=== PATIENT | female | born 1955 | race Caucasian/White ===

== ENCOUNTER → 2017-04-20 | Outpatient (CLI) | payer BC ==
[~2017-04-20] VITALS: Ht 162.6 cm; Wt 120.7 kg
[~2017-04-20] MED LIST: ASPIR 8181 MG PO; DEPAKOTE 250MG250 M1 PO; DOXYCYCLINE 10100 MG PO; LEVOTHYROXIN0.125 M1 PO; METFORMIN HCL500 MG PO; MULTIVITAMINS1 EAC7 PO; PRAVACHOL20 MG PO; PRINIVIL20 M1 PO
--- NOTE | ~2017-04-20 | S ---
[facility] [address] [place] [address] SURGICAL PATH RPT PROCEDURE Name: CARMELINA IGNACIO Room #: REG [facility]#: [id number] Admission: 04/20/17 Date of : 53 Discharge: Report #: [id number] Path Case #: [id number] PATHOLOGY REPORT DRAFT COLLECTION DATE: 04/20/2017 RECEIVED DATE: 04/20/2017 SPECIMEN(S) RECEIVED: A.Proximal ascending colon polyp B.Hepatic flexure polyp C.Polyp at 30 cm
--- NOTE | ~2017-04-20 | P ---
[facility] [place] [address] PROCEDURE REPORT Name: CARMELINA IGNACIO Room #: REG [facility]#: [id number] Admission: 04/20/17 Attend Phys: Rj Samuels MD Discharge: Date of : 53 Report #: [id number] THIS REPORT FOR: //name// CC: Rj Garrett MD BRIEF HISTORY: The patient is a 61-year-old woman who had a recent episode of bloody mucus per rectum. Her last colonoscopy was 10 years ago. PREOPERATIVE DIAGNOSIS: Rectal bleeding. POSTOPERATIVE DIAGNOSES: 1. Diminutive polyp, proximal ascending colon. 2. Diminutive polyp, hepatic flexure. 3. Flat 6-mm polyp, 30 cm. 4. Moderate sigmoid diverticulosis coli. 5. Small internal hemorrhoids. MEDICATIONS: Deep sedation with propofol per anesthesia. SPECIMENS: 1. Polyp, proximal ascending colon. 2. Polyp, hepatic flexure. 3. Polyp at 30 cm. ESTIMATED BLOOD LOSS: 3 mL. PROCEDURE: Colonoscopy to cecum and terminal ileum with snare polypectomy and biopsy. FINDINGS: Prior to propofol sedation, procedure of colonoscopy discussed with the patient as well as potential risks, benefits, and complications. She indicates she understands and desires to proceed. With the patient in left lateral decubitus position, digital examination was completed, which revealed no abnormalities. Subsequently, the [employer] video colonoscope was introduced into the rectum, advanced under direct vision to the cecum. Done with minimal difficulty. The cecum was identified by the ileocecal valve and the appendiceal orifice. I was able to visualize the distal segment of terminal ileum, which was inspected and noted to be unremarkable. At that point, the scope was slowly withdrawn and careful circumferential views were obtained including retroflexing the scope in the ascending colon. Upon slow withdrawal of the scope, the prep was noted to be excellent. Mucosa was within normal limits, normal vascular pattern, and normal light reflex. As we withdrew the scope, diminutive polyps were identified in the proximal ascending colon, which were removed by biopsy and another one was identified at the [address] [address] PROCEDURE REPORT Name: CARMELINA IGNACIO Room #: REG [facility] Nina#: [id number] Admission: 04/20/17 Attend Phys: Rj Samuels MD Discharge: Date of : 53 Report #: [id number] flexure and also removed by biopsy. An occasional diverticulum was seen in the proximal colon. As we withdrew the scope, no additional abnormalities were seen until the left colon was reached, in particular the sigmoid colon, there was noted to be moderately severe diverticular disease without endoscopic evidence of diverticulitis. The scope was withdrawn, a flat polyp was seen and removed by cold snare polypectomy at 30 cm, few fragments remain were cleaned up with biopsy forceps. Scope was further withdrawn and no additional polypoid lesions were seen. Scope was withdrawn in the rectum. Upon retroflexion, small internal hemorrhoids were seen. Scope was withdrawn. The patient tolerated the procedure well. CONDITION OF THE PATIENT UPON DISCHARGE: Following procedure, the patient drowsy, aroused, conversant and will be discharged home when fully ambulatory. INSTRUCTIONS TO THE PATIENT AND FAMILY AT THE TIME OF DISCHARGE: The patient had recent rectal bleeding, blood likely came from hemorrhoids. She has 3 polyps as noted. Doubt that these were the source of bleeding. We will follow up on the pathology of the polyps. If all 3 are adenomas, she should return in 3 years; if one or two adenomas, 5 years will be indicated; if none of them or precancerous, then 10 years would be indicated. Last colonoscopy was 10 years ago. Withdrawal time from the cecum was 18 minutes. She will return to care of Dr. Geraldo Garrett, return to see me as needed. <ELECTRONICALLY SIGNED> By: Rj Samuels MD 04/21/17 [id number] [id number] Rj Samuels MD /nt
== END | disposition home or self-care (01) ==
LOC: GI 06:28
DX: K63.5 Polyp of colon (principal); K57.30 Diverticulosis of large intestine without perforation or abscess without bleeding; K64.8 Other hemorrhoids; I10 Essential (primary) hypertension; E11.9 Type 2 diabetes mellitus without complications; E78.00 Pure hypercholesterolemia, unspecified; E03.9 Hypothyroidism, unspecified; K21.9 Gastro-esophageal reflux disease without esophagitis; Z87.891 Personal history of nicotine dependence
CPT/HCPCS: 62110; 62900